=== PATIENT | female | born 1975 | race Caucasian/White ===

== ENCOUNTER 2020-04-10 09:44 | Emergency (ER) | payer SELFPAY ==
[~2020-04-10 09:44] MED LIST: Iopamidol 370 76% 100 ML VIAL ONE
[2020-04-10] MEDS ORDERED: Sodium Chloride 0.9% 1,000 ML ONE (10:53)
[2020-04-10] MEDS ORDERED: Ondansetron PF 4 MG/2 ML Vial ONE (10:53)
[2020-04-10] MEDS ORDERED: Diphenoxylate HCl/Atropine Tablet ONE ×2 (10:53→12:04)
--- NOTE | 2020-04-10 11:13 | RAD ---
Exam: Single view of the chest and 2 views of the abdomen HISTORY: Abdominal pain COMPARISON: None FINDINGS: 2 views of the abdomen and a single view the chest shows a nonspecific, nonobstructive vitor l gas pattern. Air is seen to the level of the rectum. No free air or air-fluid levels are seen on upright examination. Cholecystectomy clips are seen. The cardiomediastinal silhouette is normal in size. There is no evidence of consolidation, mass, or p leural effusion. IMPRESSION: Nonobstructive bowel gas pattern
[2020-04-10 11:26] LABS: Bilirubin Negative (Negative); Blood, Urine Negative (Negative); Clarity Clear (Clear); Glucose, Urine (Dipstick) Negative (Negative); Leukocyte Negative (Negative); Nitrite Negative (Negative); Protein, Urine (Dipstick) Negative (Neg-Trace); Urobilinogen 0.2 mg/dL (Less than 2)
[2020-04-10 11:37] LABS: #Basophils 0.1 thou/uL (0.0-0.2); #Eosinphils 0.1 thou/uL (0.0-0.7); #Lymphocytes 2.3 thou/uL (1.20-3.40); #Monocytes 0.3 thou/uL (0.11-0.59); %Basophils 1.2 % (0.0-1.0); %Eosinophils 1.3 % (0.0-10.0); %Lymphocytes 34.1 % (21.0-51.0); %Monocytes 3.7 % (0.0-10.0); %Neutrophils 59.6 % (42.0-75.0); Hemoglobin 14.3 g/dL (12.0-16.0); Mean Corpuscular HGB CONC 32.3 g/dL (32.0-36.0); Mean Corpuscular Hemoglobin 30.8 pg (27.0-31.0); Mean Corpuscular Volume 95.5 fL (78.0-98.0); Mean Platelet Volume 6.8 fL (7.4-10.4); Platelet Count 227 thou/uL (130-400); RBC Distribution Width 12.1 % (11.5-14.5); Red Blood Cell (RBC) Count 4.65 mill/uL (4.20-5.40); White Blood Cell (WBC) Count 6.7 thou/uL (4.8-10.8)
[2020-04-10 11:47] LABS: ALT (SGPT) 37 U/L (8-55); AST (SGOT) 22 U/L (5-34); Albumin 4.3 g/dL (3.5-5.0); Alkaline Phosphatase 79 U/L (40-110); Anion Gap 12 mmol/L (10-20); BUN (Urea Nitrogen) 15 mg/dL (7.0-18.7); Bilirubin, Total 0.3 mg/dL (0.2-1.2); CK (CPK) 41 U/L (29-168); CRP (Inflammatory) Less than 0.50 mg/dL (= or < 0.5); Calc. Creatinine Clearance 0 mL/min (70-130); Calcium 10.5 mg/dL (7.8-10.44); Carbon Dioxide 21 mmol/L (22-29); Chloride 108 mmol/L (98-107); Estimated GFR-MDRD 81; Globulin 3.2 g/dL (2.4-3.5); Glucose 80 mg/dL (70-105); Lipase 42 U/L (8-78); Potassium 4.4 mmol/L (3.5-5.1); Protein, Total 7.5 g/dL (6.0-8.3); Sodium 137 mmol/L (136-145)
--- NOTE | 2020-04-10 15:09 | CT ---
CT OF THE ABDOMEN AND PELVIS WITH IV CONTRAST INDICATION: History of Crohn's disease and right lower quadrant abdominal pain COMPARISON: None FINDINGS: ABDOMEN: Lung bases: Clear Liver: There is slightly diminished opacification of the anterolateral branching of the anterior divi [place] right portal vein likely related to phase of contrast administration. There is some mixing artifact within the main portal vein likely related to early portal venous phase. No definite focal h epatic lesion is evident. Gallbladder: Surgically absent Pancreas: Normal. Adrenal glands: Normal. Spleen: Normal. Kidneys and ureters: There is a 2 mm nonobstructing calculus within the inferior pole of the left kid bib. There is slight prominence of the renal pelvo- calyceal systems bilaterally with normal appearing ureters suspicious for either slightly pronounced extrarenal pelves or mild UPJ obstruction bilaterally. Vasculature: Normal. Lymph nodes:No lymphadenopathy. Free fluid in abdomen:No free fluid is evident. PELVIS: Small and large bowel: There is low-density fluid seen within the colon. No wall thickening is eviden t. 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 This is best seen on image 53 of se saroj 2. The dilated loops of small bowel measures 5.5 cc centimeters. This is seen near an anastomotic suture line of small bowel. No definite upstream dilatation is noted. There is some small bowel seen within the right upper quadrant near the michele hepatis which may reflect a choledochojejunostomy. Appendix:Normal Bladder: Normal. Rectal and perirectal soft tissues:Normal. Reproductive structures: Not visualized and presumed to be surgically absent Free fluid in pelvis: No free fluid is evident. Lymphadenopathy pelvis: No lymphadenopathy is evident. Osseous structures: No acute osseous abnormality. No destructive osteolytic or osteoblastic lesion i s identified. There is scattered degenerative and osteoarthritic changes. Soft tissues:Normal. IMPRESSION: 1. 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 Findings may reflect sequela of active Crohn's disease at this level. GI consultation is recommended. There is no evidence to suggest presence of a contained perforation. The re is also postprocedural changes of loops of small bowel within the right upper quadrant with adjacent surgical clips and may reflect sequela of a choledochojejunostomy. Recommend correlation wit h prior surgical history. There is a normal appendix in the right lower quadrant of the abdomen. No free fluid is identified. There is low-density fluid within the colon which may reflect the presence of a mild colitis. 2. Left nephrolithiasis and mild prominence of the renal calyceal systems bilaterally reflect sequela of a chronic UPJ obstruction or slightly accentuated extra renal pelves.
== END 2020-04-10 15:49 | disposition home or self-care (01) ==
LOC: MADERS 09:44
DX: K50.90 Crohn's disease, unspecified, without complications (principal); G47.00 Insomnia, unspecified; F43.10 Post-traumatic stress disorder, unspecified; F32.9 Major depressive disorder, single episode, unspecified; F17.210 Nicotine dependence, cigarettes, uncomplicated; Z79.899 Other long term (current) drug therapy
CPT/HCPCS: 74022; 74177; 80053; 81003; 82150; 82550; 83690; 85025; 86140; 96361; 96374; J2405; J7050; Q9967

== ENCOUNTER 2020-09-15 16:42 | Emergency (ER) | payer SELFPAY ==
[2020-09-15 17:27] LABS: #Basophils 0.1 thou/uL (0.0-0.2); #Eosinphils 0.1 thou/uL (0.0-0.7); #Lymphocytes 3.4 thou/uL (1.20-3.40); #Monocytes 0.4 thou/uL (0.11-0.59); #Neutrophils 6.1 thou/uL (1.40-6.50); %Basophils 1.1 % (0.0-1.0); %Lymphocytes 33.9 % (21.0-51.0); %Monocytes 3.8 % (0.0-10.0); %Neutrophils 60.1 % (42.0-75.0); Hemoglobin 14.1 g/dL (12.0-16.0); Mean Corpuscular HGB CONC 33.1 g/dL (32.0-36.0); Mean Corpuscular Hemoglobin 30.9 pg (27.0-31.0); Mean Corpuscular Volume 93.5 fL (78.0-98.0); Mean Platelet Volume 7.5 fL (7.4-10.4); Platelet Count 204 thou/uL (130-400); RBC Distribution Width 11.9 % (11.5-14.5); Red Blood Cell (RBC) Count 4.57 mill/uL (4.20-5.40); White Blood Cell (WBC) Count 10.1 thou/uL (4.8-10.8)
--- NOTE | 2020-09-15 17:33 | RAD ---
CHEST TWO VIEWS: History: Chest pain Comparison: 07-30-2020 FINDINGS: No confluent pneumonia, overt edema, or pleural effusion. IMPRESSION: No significant acute intrathoracic disease. POS: RRE
[2020-09-15 17:42] LABS: ALT (SGPT) 11 U/L (8-55); AST (SGOT) 6 U/L (5-34); Alkaline Phosphatase 64 U/L (40-110); Anion Gap 15 mmol/L (10-20); BUN (Urea Nitrogen) 15 mg/dL (7.0-18.7); Bilirubin, Total 0.2 mg/dL (0.2-1.2); Calc. Creatinine Clearance 0 mL/min (70-130); Calcium 9.3 mg/dL (7.8-10.44); Carbon Dioxide 21 mmol/L (22-29); Chloride 109 mmol/L (98-107); Estimated GFR-MDRD 79; Globulin 2.8 g/dL (2.4-3.5); Glucose 93 mg/dL (70-105); Lipase 48 U/L (8-78); Potassium 3.9 mmol/L (3.5-5.1); Protein, Total 6.8 g/dL (6.0-8.3); Sodium 141 mmol/L (136-145)
[2020-09-15] MEDS ORDERED: Ibuprofen 400 MG TAB ONE (19:22)
[2020-09-15 19:45] LABS: Troponin I 0.012 ng/mL (< 0.028)
[2020-09-16 15:46] LABS: SARS-CoV-2 MS2 Positive; SARS-CoV-2 N Gene Negative; SARS-CoV-2 S Gene Negative; SARS-CoV-2 by NAA Not Detected (NotDetected); SARS-CoV-2 orf1ab Negative
== END 2020-09-15 20:14 | disposition home or self-care (01) ==
LOC: MADERS 16:42
DX: R07.81 Pleurodynia (principal); F43.10 Post-traumatic stress disorder, unspecified; G47.00 Insomnia, unspecified; K50.90 Crohn's disease, unspecified, without complications; F41.9 Anxiety disorder, unspecified; Z87.891 Personal history of nicotine dependence; Z79.899 Other long term (current) drug therapy
CPT/HCPCS: 36415; 71046; 80053; 83605; 83690; 84484; 85025; 85379; 87635; 93005; U0003